=== PATIENT | female | born 1965 ===

== ENCOUNTER 2017-08-27 15:04 | Emergency (ER) | payer OTHER ==
[2017-08-27 15:14] VITALS: BP 122/73; PULSE 62; TEMP 98; O2SAT 99
--- NOTE | 2017-08-27 15:38 | C.PDOC ---
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 PS LEG CAUGHT IN WOODEN PALLET AND FELL FORWARD. LANDED ON OUTSTRETCHED HANDS. CO PAIN OVER ULNAR ASPECT R WRIST, LATERAL SIDE L ANKLE. PAIN W WT BEAR. NO OTHER ASSOC SX OR INJURY EXAM NAD NONTOXIC HEENT ATRAUM EXT R WRIST AROM WO DIFF NO DEFORM NO SCAPHOID/SNUFFBOX TEND. NO FOCAL ULNAR TEND. L LE: NO TIB/FIB TEND, DEFORM. L KNEE AROM WO DIFF, NONTEND. 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 Musculoskeletal: Positive for: Other ((+) Right wrist, left ankle/lower leg injury). Negative for: Shoulder Pain, Back Pain Neurological: Negative for: Weakness, Numbness Physical Exam - Physical Exam Appears: Non-toxic, No Acute Distress Skin: Warm, Dry, No Rash Head: Atraumatic, Normacephalic Eye(s): bilateral: Normal Inspection, PERRL, EOMI Nose: Normal, No Deformity Oral Mucosa: Moist Neck: Normal, Normal ROM, Supple Respiratory: Normal Breath Sounds Extremity: Other (Right Wrist - AROM without difficulty. No deformity. No scaphoid/snuffbox tenderness. No focal ulnar tenderness. Left Lower Extremity - No tib/fib tenderness. Defrom. Left knee AROM without difficulty, nontender. Swelling to the left lateral malleolus. No focal tenderness. AROM without difficulty. Left foot neg.) Neurological/Psych: Oriented x3, Normal Speech, Normal Motor, Normal Sensation ED Course And Treatment O2 Sat by Pulse Oximetry: 99 (RA) Pulse Ox Interpretation: Normal - Other Rad X-Ray - Right Wrist X-Ray: Interpreted by Me, Viewed By Me Interpretation: ?SCAPHOID FX X-Ray - Right Hand X-Ray: Interpreted by Me, Viewed By Me Interpretation: NEG. X-Ray - Left Tibia/Fibula X-Ray: Viewed By Me, Read By Radiologist Interpretation: PROCEDURE: Radiographs of the left tibia and fibula. HISTORY: TRAUMA. COMPARISON: None available. TECHNIQUE: Frontal and lateral views obtained. FINDINGS: BONES: No fracture or destructive lesion. Achilles enthesophyte. JOINT SPACES: Tibial femoral joint space narrowing. . OTHER FINDINGS: None. IMPRESSION: No demonstrated fracture or dislocation. X-Ray - Left Knee X-Ray: Viewed By Me, Read By Radiologist Interpretation: PROCEDURE: Left Knee Radiographs. HISTORY: Pain. COMPARISON : None. FINDINGS: BONES: Enthesophyte at the insertion of the quadriceps tendon. No fracture. JOINTS: Tricompartmental narrowing with degenerative spurring. JOINT EFFUSION: None. OTHER FINDINGS: None. IMPRESSION: No demonstrated fracture or dislocation. Mild degenerative changes. X-Ray - Left Foot X-Ray: Viewed By Me, Read By Radiologist Interpretation: PROCEDURE: Left Foot Radiographs. HISTORY: TRAUMA. COMPARISON: None. FINDINGS: BONES: Achilles enthesophyte. Small plantar calcaneal spur. No fracture. JOINTS: Normal. SOFT TISSUES: Normal. OTHER FINDINGS: None. IMPRESSION: No demonstrated fracture dislocation. X-Ray - Left Ankle X-Ray: Viewed By Me, Read By Radiologist Interpretation: PROCEDURE: Left Ankle Radiographs. HISTORY: TRAUMA. COMPARISON: None. FINDINGS: BONES: Achilles enthesophyte. Small plantar calcaneal spur. No fracture. JOINTS: Normal. No osteoarthritis. Ankle mortise maintained. Talar dome intact. SOFT TISSUES: Normal. OTHER FINDINGS: None. IMPRESSION: No demonstrated fracture or dislocation. Medical Decision Making Medical Decision Making: PLAN: * X-Ray - Right Hand, Right Wrist, Left Knee, Left Ankle, Left Foot, Left Tibia/ Fibula * Tylenol PO * Toradol IM Disposition Counseled Patient/Family Regarding: Studies Performed, Diagnosis, Need For Followup, Rx Given - Disposition Referrals: [facility] [Outside] [facility] [Outside] Disposition: HOME/ ROUTINE Disposition Time: 16:33 Condition: IMPROVED Prescriptions: Ibuprofen [Motrin] 600 mg PO Q6 #30 tab Lidocaine 5% [Lidoderm] 1 ea TD PRN PRN #10 patch PRN Reason: Pain, Moderate (4-7) Instructions: Ankle Sprain (ED), Wrist Sprain (ED) Forms: [employer] (Puerto Rican), Work Excuse Print Language: GABONESE - Clinical Impression Clinical Impression: Ankle sprain, Wrist sprain - Scribe Statement The provider has reviewed the documentation as recorded by the Damian Duran Provider Attestation: All medical record entries made by the Damian were at my direction and personally dictated by me. I have reviewed the chart and agree that the record accurately reflects my personal performance of the history, physical exam, medical decision making, and the department course for this patient. I have also personally directed, reviewed, and agree with the discharge instructions and disposition. Orthopedic Care Application Of:: Ankle Air Cast, Volar Splint
--- NOTE | 2017-08-27 16:14 | RAD ---
PROCEDURE: Right Wrist Radiographs. HISTORY: TRAUMA COMPARISON: None. FINDINGS: BONES: Questionable scaphoid fracture on lateral view. JOINTS: Normal. No dislocation. SOFT TISSUES: Mild circumferential wrist soft tissue swelling. OTHER FINDINGS: None. IMPRESSION: Questionable scaphoid fracture on lateral view. Clinical correlation is recommended.
--- NOTE | 2017-08-27 16:15 | RAD ---
PROCEDURE: Radiographs of the left tibia and fibula. HISTORY: TRAUMA COMPARISON: None available. TECHNIQUE: Frontal and lateral views obtained. FINDINGS: BONES: No fracture or destructive lesion. Achilles enthesophyte. JOINT SPACES: Tibial femoral joint space narrowing. . OTHER FINDINGS: None. IMPRESSION: No demonstrated fracture or dislocation.
--- NOTE | 2017-08-27 16:16 | RAD ---
PROCEDURE: Right Hand Radiographs. HISTORY: TRAUMA COMPARISON: None. FINDINGS: BONES: Normal. No fracture. JOINTS: Normal. No osteoarthritic changes. SOFT TISSUES: Mild circumferential wrist soft tissue swelling. OTHER FINDINGS: None. IMPRESSION: No demonstrated fracture or dislocation.
--- NOTE | 2017-08-27 16:16 | RAD ---
PROCEDURE: Left Knee Radiographs. HISTORY: Pain. COMPARISON: None. FINDINGS: BONES: Enthesophyte at the insertion of the quadriceps tendon. No fracture. JOINTS: Tricompartmental narrowing with degenerative spurring. JOINT EFFUSION: None. OTHER FINDINGS: None. IMPRESSION: No demonstrated fracture or dislocation. Mild degenerative changes.
--- NOTE | 2017-08-27 16:19 | RAD ---
PROCEDURE: Left Foot Radiographs. HISTORY: TRAUMA COMPARISON: None. FINDINGS: BONES: Achilles enthesophyte. Small plantar calcaneal spur. No fracture. JOINTS: Normal. SOFT TISSUES: Normal. OTHER FINDINGS: None. IMPRESSION: No demonstrated fracture dislocation.
--- NOTE | 2017-08-27 16:20 | RAD ---
PROCEDURE: Left Ankle Radiographs. HISTORY: TRAUMA COMPARISON: None FINDINGS: BONES: Achilles enthesophyte. Small plantar calcaneal spur. No fracture. JOINTS: Normal. No osteoarthritis. Ankle mortise maintained. Talar dome intact SOFT TISSUES: Normal. OTHER FINDINGS: None. IMPRESSION: No demonstrated fracture or dislocation.
[2017-08-27] MEDS ORDERED: Lidocaine 5% Patch TD ONE (16:36)
[2017-08-27 17:01] VITALS: RESP 20
== END 2017-08-27 17:01 | disposition home or self-care (01) ==
LOC: C.ER 15:04 → EDBD 15:04 → C.ER 17:01
DX: S63.501A Unspecified sprain of right wrist, initial encounter (principal); S93.402A Sprain of unspecified ligament of left ankle, initial encounter; W18.30XA Fall on same level, unspecified, initial encounter
CPT/HCPCS: 29125; 73110; 73130; 73562; 73590; 73610; 73630; 96372; 99285; J1885